=== PATIENT | male | born 2005 | race African-American/Black ===

== ENCOUNTER 2025-04-20 23:08 | Emergency (ER) | payer MEDICAID, SELFPAY ==
[2025-04-20 23:09] VITALS: BP 160/92; PULSE 112; RESP 14; TEMP 35.5; O2SAT 100; BMI 22.1
[2025-04-20] MEDS: Naloxone 2 MG/2 ML Syringe IV (23:12)
--- NOTE | 2025-04-20 23:15 | CT_ITS ---
PROCEDURE: BRAIN/HEAD WITHOUT CONTRAST 04/20/2025 REASON FOR EXAM: AMS TECHNIQUE: Head CT without intravenous contrast. Coronal and Sagittal reconstruction series were provided. One or more dose reduction techniques were used (e.g., Automated exposure control, adjustment of the mA and/or kV according to patient size, use of iterative reconstruction technique. RADIATION DOSE SUMMARY: CTDlvol: 44.99 mGy DLP: 812.98 mGycm COMPARISON: None available FINDINGS: No intracranial hemorrhage, mass effect or CT evidence of large vascular territory acute infarct. The ventricles are within limits and midline. The visualized paranasal sinuses, mastoids and orbits appear within limits. CT/Brain/Head without Contrast IMPRESSION: No intracranial hemorrhage, mass effect or CT evidence of large vascular territ ory acute infarct. Reading Location: [id number]
--- NOTE | 2025-04-20 23:17 | ED.RN ---
NARCAN 2MG GIVEN IV AT [address] ALLEN BEDSIDE VERBAL ORDER. ABOUT 2 MINUTES LATER, PATIENT JUMP UP AND ALMOST FELL OFF THE BACK OF THE BED. 3 [facility] OFFICES AT BEDSIDE. PATIENT IS AWAKE AND ALERT, APPEARS CONFUSED BUT DOES NOT ANSWER ANY QUESTIONS.
[2025-04-20 23:29] LABS: Absolute Neutrophil Count 5.5 X10^3/uL (2.0-7.7); Basophil# 0.04 X10^3/uL; Basophil% 0.5 % (0-1); Eosinophil# 0.08 X10^3/uL; Hematocrit 45.4 % (40-54); Lymphocyte % 23.3 % (19-41); Mean Corp Hgb Conc 35.2 g/dL (32-36); Mean Corpuscular Volume 82.4 fL (80-94); Mean Platelet Vol. 9.4 fl (6.2-12.0); Monocyte# 0.29 X10^3/uL; Monocyte% 3.7 % (0-10); NRBC Flagged by Analyzer 0 % (0-5); Neutrophil # 5.51 X10^3/uL (2.7-7.7); Neutrophil % 71.2 % (47-70); Platelet Count 369 K/mm3 (150-450); RBC Distribution Width CV 12.2 % (11.6-14.6); RBC Distribution Width SD 36.3 fl (35.1-43.9); Red Blood Count 5.51 M/mm3 (4.6-6.2); White Blood Count 7.7 K/mm3 (4.4-11.0)
[2025-04-20] MEDS: 0.9% Normal Saline (1000mL) 1,000 ML 999 ML IV (23:29)
[2025-04-20] MEDS: Ondansetron 4 MG/2 ML Vial IV (23:29)
[2025-04-20 23:36] VITALS: BP 146/93; PULSE 67; RESP 12; O2SAT 100
--- NOTE | 2025-04-20 23:44 | RAD_ITS ---
PROCEDURE: CHEST 1 VIEW (PORTABLE) 04/20/2025 REASON FOR EXAM: AMS TECHNIQUE: Frontal view of the chest. COMPARISON: None FINDINGS: Hardware: None Heart: The heart size is normal. Lungs: The lungs are clear. Bones: The bones are unremarkable. Other: RAD/Chest 1 View (Portable) IMPRESSION: No Acute Findings. Reading Location: [facility]
[2025-04-20 23:46] LABS: Bedside Glucose 83 mg/dL (74-106)
[2025-04-21] VITALS (8 sets, daily range): BP systolic 125–150; BP diastolic 63–87; PULSE 18–68; RESP 12–18; TEMP 36.7; O2SAT 95–100
[2025-04-21 00:02] LABS: Alcohol, Blood (Medical)-Serum < 10.1 mg/dL (<=10.0)
[2025-04-21 00:07] LABS: Lactic Acid 3.3 mmol/L (0.0-2.0)
[2025-04-21 00:07] LABS: ALB/GLOB Ratio 1.4 RATIO (0.9-2.4); AST(SGOT) 32 U/L (<=37); Alanine Aminotransfer ALT/SGPT 17 U/L (<=46); Albumin, Serum 4.9 g/dL (3.5-5.0); Alkaline Phosphatase 73 U/L (40-129); Anion Gap 22 (5-15); BUN 9 mg/dL (4-19); BUN/Creat Ratio 8.6 RATIO (10-20); Calcium,Total 9.9 mg/dL (7.6-11.0); Carbon Dioxide 16.6 mmol/L (21.0-32.0); Chloride 97 mmol/L (98-108); Creatinine, Serum 1.02 mg/dL (0.70-1.20); EST Glomerular Filtration Rate 107 (>60); Estimated Creatinine Clearance 106.94 ml/min (50-250); Globulin 3.4 g/dL (2.2-4.2); Glucose 85 mg/dL (70-99); Potassium 4.4 mmol/L (3.3-5.1); Protein, Total 8.3 g/dL (5.9-8.4); Sodium Level 135 mmol/L (133-145); Total Bilirubin 0.81 mg/dL (0.00-1.30)
[2025-04-21 00:43] LABS: Amphetamine Urine NEGATIVE (<1000 ng/mL); Barbiturate Urine NEGATIVE (< 200 ng/mL); Benzodiazepine Urine NEGATIVE (< 200 ng/mL); Buprenorphine Urine NEGATIVE (< 200 ng/mL); Cocaine Urine NEGATIVE (< 300 ng/mL); Fentanyl, Urine NEGATIVE; Methadone Urine NEGATIVE (< 300 ng/mL); Opiates Urine NEGATIVE (< 300 ng/mL); Oxycodone, Urine NEGATIVE (< 100 ng/mL); PCP Urine NEGATIVE (< 25 ng/mL); THC Urine PRESUMPTIVE POSITIVE (< 50 ng/mL)
--- NOTE | 2025-04-21 01:26 | EX.ED.DYSGE1 ---
HPI History of Present Illness Chief Complaint: Unresponsive [facility] Medical History unable to obtain Allergy/AdvReac Type Severity Reaction Status Date / Time Unable to Assess Allergy Verified 04/20/25 23:34 Surgical History unable to obtain Social History Smoking Status: Unknown if ever smoked EXAM Physical Exam Const Vital Signs: 04/20/25 23:09 04/20/25 23:10 04/20/25 23:30 Temperature 96 F L Temperature Source Temporal Pulse Rate 112 H Respiratory Rate 14 Respiratory Effort Normal Non-Labored Respiratory Pattern Irregular Blood Pressure 160/92 H Blood Pressure Mean 114 Pulse Ox 100 Oxygen Delivery Method 04/20/25 23:36 04/21/25 00:00 04/21/25 00:30 Temperature Temperature Source Pulse Rate 67 61 68 Respiratory Rate 12 18 Respiratory Effort Respiratory Pattern Blood Pressure 146/93 H 150/80 H 128/87 H Blood Pressure Mean 110 103 100 Pulse Ox 100 100 100 Oxygen Delivery Method Room Air Room Air Room Air 04/21/25 01:00 04/21/25 01:30 04/21/25 02:00 Temperature Temperature Source Pulse Rate 68 68 55 L Respiratory Rate 16 18 16 Respiratory Effort Respiratory Pattern Blood Pressure 145/83 H 134/85 H 127/67 H Blood Pressure Mean 103 101 87 Pulse Ox 100 100 100 Oxygen Delivery Method Room Air Room Air Room Air 04/21/25 02:30 04/21/25 03:00 04/21/25 03:30 Temperature Temperature Source Pulse Rate 62 64 57 L Respiratory Rate 12 15 18 Respiratory Effort Respiratory Pattern Blood Pressure 125/65 H 125/64 H 134/63 H Blood Pressure Mean 85 84 86 Pulse Ox 95 96 99 Oxygen Delivery Method Room Air Room Air Room Air 04/21/25 03:30 Temperature 98.0 F Temperature Source Pulse Rate 18 L Respiratory Rate 18 Respiratory Effort Respiratory Pattern Blood Pressure 134/63 H Blood Pressure Mean 86 Pulse Ox 99 Oxygen Delivery Method MDM MDM MDM Narrative Medical decision making narrative: HISTORY OF PRESENT ILLNESS: Chief complaint: Unresponsive 20-year-old male was found on the ground unresponsive by EMS. They noted he had normal vitals and saturating well but was not responding. They note he got a total of 6 mg of Narcan prior to arrival with no response. Patient arrived. Did not provide a lot of history given his clinical status. REVIEW OF SYSTEMS: Cannot obtain a reliable review of systems initially secondary to altered mental status PHYSICAL EXAM: Nursing triage notes reviewed, Vital signs reviewed Constitutional: please see mdm HENT: MMM, no tongue biting Eyes: Pupils equal round and reactive to light, Extraocular muscles intact Neck: No stridor, no JVD, full neck ROM Lungs: Clear to auscultation, No wheezing or rales. No increased work of breathing, no conversational dyspnea, no accessory muscle use, no nasal flaring. No respiratory distress noted Heart: Regular rate and rhythm, No murmurs, No rubs and No gallops, 2+ distal pulses (radial, femoral, posterior tibial) in all extremities Abdomen: Soft, there is no tenderness, rigidity, rebound or guarding, no obvious peritoneal signs, no palpable pulsatile abdominal masses, no auscultated abdominal bruit : No CVAT, no bowel or bladder incontinence noticed Extremities: No edema Neuro: No new focal neurological deficits, cranial nerves II through XII intact, 5/5 strength in all present extremities. Intact sensation to light touch in all present extremities, 2+ reflexes bilateral patella tendons. Skin: No rash or lesions noted MEDICAL DECISION MAKING: Chief Complaint: please see HPI External records reviewed: Reviewed prior imaging Factors affecting care: none Social determinants of health: none History obtained from others: none Consults: none [facility] Narrative: The patient was initially hemodynamically stable, afebrile and nontoxic-appearing. Initial exam without signs of trauma or focal neurologic deficits. Patient was not responsive to painful stimuli initially. I tried 2 mg of IV Narcan with immediate response the patient awaking startled state he did not did remember what happened. He denied drug use. Denied headache, chest pain focal weakness. Denies abdominal pain vomiting or diarrhea. Given concern for seizure-like activity and unresponsiveness I did pursue a broad lab and imaging workup which was remarkable for an elevated lactate however unremarkable for signs of inflammation, significant VIC, liver abnormalities alcohol abnormalities, signs of intracranial hemorrhage, arrhythmia or myocardial ischemia. I do not suspect the patient elevated lactate related to his severe systemic infection or sepsis. His urine tox was positive for THC. After 2 L of fluid repeat lactate cleared resolved. Likely initial lactate elevation likely was secondary to transient hypoxemia from opiate overdose. LAbs images were read reviewed personally myself. EKG with normal sinus rhythm rate of 70, normal axis, no intervals CBC without leukocytosis, severe anemia, no thrombocytopenia. Initial lactate elevated consistent with endorgan hypoperfusion, repeat lactate within normal limits Serum alcohol negative Urine tox cream positive for THC Serum glucose within normal limits CMP consistent with endorgan hypoperfusion and elevated lactate with low bicarb and elevated anion gap. No other significant electrolyte abnormalities noted, no hyperglycemia to suggest DKA and no evidence hepatobiliary pathology I have personally reviewed the patient's chest x-ray. Chest x-ray is unremarkable for pulmonary edema, pneumothorax, pneumonia or focal cardiopulmonary abnormality. CT scan of the brain showed no evidence of obvious intracranial abnormality After approximate 4 hours observation no rebound and likely opiate overdose patient is aware for discharge home. We were able to arrange a sober ride for him the form of local police officers. The patient and/or family, caregivers express understanding. The patient and/or family, caregivers agrees with the plan. Shared decision making: I will have a discussion with the patient and or visitors regarding risk/benefits of further testing or admission. They will be made aware of of the risk/benefits inherent in this decision they will be given the opportunity to voice understanding. Total critical care time today provided was at least 0 minutes. This excludes separately billable procedures. Critical care time (if documented) is secondary to the patient having high probability of clinically significant/life threatening deterioration in the patient's condition which required my urgent intervention. Impression: 1. Altered mental status 2. Opiate overdose Dispo: Discharge home This note was generated with [employer] dictation software. It may contain incorrect words, spelling, and punctuation that were not noted in review of the chart prior to signing. Lab Data Labs: Laboratory Results - last 24 hr 04/20/25 04/20/25 04/20/25 00:07 23:20 23:25 WBC 7.7 RBC 5.51 Hgb 16.0 Hct 45.4 MCV 82.4 MCH 29.0 MCHC 35.2 RDW Std Deviation 36.3 RDW Coeff of Stacey 12.2 Plt Count 369 MPV 9.4 Immature Gran % (Auto) 0.300 Neut % (Auto) 71.2 H Lymph % (Auto) 23.3 Mower % (Auto) 3.7 Eos % (Auto) 1.0 Baso % (Auto) 0.5 Absolute Neuts (auto) 5.5 Absolute Lymphs (auto) 1.80 Nucleated RBC % 0 Sodium 135 Potassium 4.4 Chloride 97 L Carbon Dioxide 16.6 L Anion Gap 22 H BUN 9 Creatinine 1.02 Estim Creat Clear Calc 106.94 Est GFR (MDRD) Non-Af 107 BUN/Creatinine Ratio 8.6 L Glucose 85 Lactic Acid 3.3 H* Calcium 9.9 Total Bilirubin 0.81 AST 32 ALT 17 Alkaline Phosphatase 73 Total Protein 8.3 Albumin 4.9 Globulin 3.4 Albumin/Globulin Ratio 1.4 Urine Opiates Screen NEGATIVE U Buprenorphine Qual NEGATIVE Ur Oxycodone Screen NEGATIVE Urine Methadone Screen NEGATIVE Urine Fentanyl Screen NEGATIVE Ur Barbiturates Screen NEGATIVE Ur Phencyclidine Scrn NEGATIVE Ur Amphetamines Screen NEGATIVE U Benzodiazepines Scrn NEGATIVE Urine Cocaine Screen NEGATIVE U Cannabinoids Screen PRESUMPTIVE POSITIVE Ethyl Alcohol < 10.1 POC Glucose 04/20/25 04/21/25 23:29 02:08 WBC RBC Hgb Hct MCV MCH MCHC RDW Std Deviation RDW Coeff of Stacey Plt Count MPV Immature Gran % (Auto) Neut % (Auto) Lymph % (Auto) Mower % (Auto) Eos % (Auto) Baso % (Auto) Absolute Neuts (auto) Absolute Lymphs (auto) Nucleated RBC % Sodium Potassium Chloride Carbon Dioxide Anion Gap BUN Creatinine Estim Creat Clear Calc Est GFR (MDRD) Non-Af BUN/Creatinine Ratio Glucose Lactic Acid 1.0 Calcium Total Bilirubin AST ALT Alkaline Phosphatase Total Protein Albumin Globulin Albumin/Globulin Ratio Urine Opiates Screen U Buprenorphine Qual Ur Oxycodone Screen Urine Methadone Screen Urine Fentanyl Screen Ur Barbiturates Screen Ur Phencyclidine Scrn Ur Amphetamines Screen U Benzodiazepines Scrn Urine Cocaine Screen U Cannabinoids Screen Ethyl Alcohol POC Glucose 83 Radiography Chest X-Ray - ED: Read by ED Physician Diagnostic Testing: Clinical Impression(s) from Imaging Studies Brain CT 04/20/25 23:15 IMPRESSION: No intracranial hemorrhage, mass effect or CT evidence of large vascular territory acute infarct. Reading Location: [id number] Chest X-Ray 04/20/25 23:44 IMPRESSION: No Acute Findings. Reading [facility] Discharge Plan Triage Chief Complaint: Unresponsive ED Provider: Filiberto Tyson Dx/Rx/DC Orders Instructions: ED Opiate Abuse Primary Care Provider: Care Physician,No Primary Referrals: Nabor Robbins MD [Med Staff - Active Staff] - Activity Restrictions/Additional Instructions: Thank you for trusting us with your care today! Please refrain from using drugs. Please take Tylenol (2 pills, 650 mg), ibuprofen (2 pills, 400 mg) every 6 hours as needed for pain and fever control. Please return to the emergency department if your symptoms change or worsen. Please follow with your primary care physician for further outpatient evaluation and management. Print Language: Arabic Disposition Disposition: Home, Self Care
[2025-04-21] MEDS: 0.9% Normal Saline (1000mL) 1,000 ML 999 ML IV (01:30)
[2025-04-21 03:29] LABS: Reflex Lactate? Y
== END 2025-04-21 03:37 | disposition home or self-care (01) ==
PROVIDERS: Emergency Provider Emergency Medicine; Visit Provider Emergency Medicine
DX: T40.2X4A Poisoning by other opioids, undetermined, initial encounter (principal); R41.82 Altered mental status, unspecified
CPT/HCPCS: 70450; 71045; 80053; 80307; 82077; 82962; 83605; 85025; 93005; 96361; 96374; 96375; 99285; A4216; J2405